=== PATIENT | male | born 1995 | race Caucasian/White ===

== ENCOUNTER 2016-07-28 20:58 | Emergency (ER) | payer OTHER ==
[~2016-07-28] VITALS: Ht 182.9 cm; Wt 81.8 kg
[2016-07-28] MEDS ORDERED: SODIUM CHLORIDE FLUSH 10ML SYR IVF ONE (22:00)
[2016-07-28 22:18] LABS: HEMOGLOBIN 14.3 g/dL (13.7-18.0)
[2016-07-28 22:30] LABS: ASPARTATE AMINO TRANSFERASE 69 U/L (15-37); BLOOD UREA NITROGEN 17 mg/dL (7-18)
[2016-07-28] MEDS ORDERED: CALCIUM CARBONATE 500 MG/5 ML PO ONE (23:30)
[2016-07-28] MEDS ORDERED: CALCIUM CARBONATE 500 MG TAB.CHEW PO ONE (23:45)
[2016-07-28 23:47] VITALS: BP 113/49
== END 2016-07-28 23:49 | disposition home or self-care (01) ==
LOC: ED 23:15
DX: R55 Syncope and collapse (principal); E83.51 Hypocalcemia; R05 Cough; S00.03XA Contusion of scalp, initial encounter; F12.10 Cannabis abuse, uncomplicated; Z88.2 Allergy status to sulfonamides; Z88.8 Allergy status to other drugs, medicaments and biological substances; X58.XXXA Exposure to other specified factors, initial encounter; Y93.89 Activity, other specified; Y99.8 Other external cause status; Y92.89 Other specified places as the place of occurrence of the external cause
CPT/HCPCS: 36415; 80053; 83735; 85025; 93005; 99285

== ENCOUNTER → 2016-10-03 | Outpatient (CLI) | payer OTHER ==
[~2016-10-03] MED LIST: [UNRECOGNIZED DRUG - REMARK]
== END | disposition home or self-care (01) ==
LOC: STAR 10:01
PROVIDERS: ATTEND Otolaryngology
DX: Z02.9 Encounter for administrative examinations, unspecified (principal)

== ENCOUNTER 2016-10-10 06:30 | Day surgery (SDC) | payer OTHER ==
[2016-10-03 10:56] VITALS: BP 126/87
[~2016-10-10] VITALS: Ht 182.9 cm; Wt 80.0 kg
[2016-10-10] MEDS ORDERED: LIDOCAINE 1%, 2ML ONE (07:30)
[2016-10-10] MEDS ORDERED: LACTATED RINGERS 1,000 ML IV SCH (07:43)
[2016-10-10] MEDS ORDERED: FENTANYL PF 100 MCG/2ML ONE ×2 (07:56→09:06)
[2016-10-10] MEDS ORDERED: ROCURONIUM 10 MG/ML ONE (07:59)
[2016-10-10] MEDS ORDERED: CEFAZOLIN 1,000 MG ONE (07:59)
[2016-10-10] MEDS ORDERED: PROPOFOL 10 MG/ML, 20ML ONE (07:59)
[2016-10-10] MEDS ORDERED: DEXAMETHASONE 4 MG/ML, 1ML ONE (07:59)
[2016-10-10] MEDS ORDERED: METOCLOPRAMIDE 5 MG/ML, 2ML ONE (07:59)
[2016-10-10] MEDS ORDERED: SUCCINYLCHOLINE 20 MG/ML, 10ML ONE (07:59)
[2016-10-10] MEDS ORDERED: ONDANSETRON 2MG/ML, 2ML ONE (07:59)
[2016-10-10] MEDS ORDERED: LIDOCAINE 1%, 2ML SQ PRN (08:00)
[2016-10-10] MEDS ORDERED: LIDOCAINE 1%-EPI 1:100K, 30ML INFIL ONE (08:23)
[2016-10-10] MEDS ORDERED: OXYMETAZOLINE NASAL SPRAY 0.05%, 15ML NAS ONE (08:24)
[2016-10-10] MEDS ORDERED: NEO/BACI/POLY/HC OINT 15GM TP ONE (08:26)
[2016-10-10] MEDS ORDERED: HYDROmorphone 1 MG/ML, 1ML IV PRN (08:30)
[2016-10-10] MEDS ORDERED: OXYcodone 5 MG/5 ML ORAL.SOL UDC PO PRN (08:30)
[2016-10-10] MEDS ORDERED: MIDAZOLAM 1 MG/ML, 2ML IV PRN (08:30)
[2016-10-10] MEDS ORDERED: FENTANYL PF 100 MCG/2ML IV PRN (08:30)
[2016-10-10] MEDS ORDERED: MEPERIDINE/PF 25MG/0.5ML IVPush PRN (08:30)
[2016-10-10] MEDS ORDERED: ONDANSETRON 2MG/ML, 2ML IVPush PRN (08:30)
[2016-10-10] MEDS ORDERED: OXYcodone 5 MG/5 ML ORAL.SOL UDC ONE (09:06)
== END 2016-10-10 11:15 | disposition home or self-care (01) ==
LOC: OUT 06:30
PROVIDERS: ATTEND Otolaryngology
DX: J34.2 Deviated nasal septum (principal); J34.3 Hypertrophy of nasal turbinates; Z88.2 Allergy status to sulfonamides
CPT/HCPCS: 30140; 30520; 88304; J0330; J0690; J1100; J2405; J2704; J2765; J3010; J3490; J7120